=== PATIENT | female | born 1945 | race Caucasian/White ===

== ENCOUNTER 2021-01-09 18:06 | Emergency (ER) | payer MEDICARE, OTHER ==
[~2021-01-09 18:06] MED LIST: CIPRODEX OTIC7.5 ML EARRT
[2021-01-09] MEDS ORDERED: IBUPROFEN600 MG PO (21:06)
== END 2021-01-09 21:23 | disposition home or self-care (01) ==
LOC: ER1 18:06
DX: S43.401A Unspecified sprain of right shoulder joint, initial encounter (principal); S46.911A Strain of unspecified muscle, fascia and tendon at shoulder and upper arm level, right arm, initial encounter; I10 Essential (primary) hypertension; W01.0XXA Fall on same level from slipping, tripping and stumbling without subsequent striking against object, initial encounter; Z90.89 Acquired absence of other organs
CPT/HCPCS: 73030; 73060; 73090; 73502; 73564; 99283